=== PATIENT | male | born 1970 | race Caucasian/White ===

== ENCOUNTER → 2018-05-13 | Outpatient (CLI) | payer OTHER ==
--- NOTE | 2018-05-13 16:22 | PCVCIMAG ---
APPROVED REPORT Study performed: 05/13/2018 15:09:48 Exam: Stress Echocardiogram Indication: Hypertension, Chest pain Patient Location: Echo lab Stress Nurse: Gwen Giang RN Status: routine Ht: 6 ft 0 in HR: 65 bpm BP: 140/104 mmHg Rhythm: NSR Medical History Medical History: HTN Exercise History: Physically active Procedure The patient underwent an Exercise Stress Test using the Chucho Protocol. Blood pressure, heart rate, and EKG were monitored. An Echocardiogram was performed by in flight technician in four stages in quad fashion. At peak stress, four selected images were obtained and placed side by side with resting images for comparison. Stress Test Details Stress Test: Exercise stress testing was performed using a Chucho protocol. HR Resting HR: 65 bpmMax Heart Rate (APMHR): 170 bpm Max HR Achieved: 179 bpmTarget HR (85% APMHR): 144 bpm % of APMHR: 105 Recovery HR: 112 bpm HR response to stress: Normal HR response to stress BP Resting BP: 140/104 mmHg Max BP: 198/100 mmHg Recovery BP: 144/90 mmHg BP response to stress: Abnormal hypertensive response to stress. ECG Resting ECG: Sinus Rhythm with inferolateral T wave inversion Stress ECG: Sinus Rhythm ST Change: Normal Maximum ST Deviation: 0 mm Arrhythmia: None Recovery ECG: Sinus Rhythm Recovery ST Change: Normal Recovery ST Deviation: 0 mm Recovery Arrhythmia: None Clinical Reason for Termination: Maximal effort Exercise duration: 11 min 00 sec Highest Stage Achieved: Stage 4: 4.2 mph at 16% grade. Exercise capacity: 13.70 METs Overall Exercise Capacity for Age: Good Angina Score: None Stress ECG Conclusion Clinical: Non-ischemic ECG: Non-ischemic Shelby Treadmill Score is 11.0 which is Low risk. Pre-Stress Echo The resting Echocardiogram showed normal left ventricular contractility with an estimated Ejection Fraction of about 55-60%. Normal wall motion in all segments on baseline images. Post-Stress Echo The stress Echocardiogram showed normal left ventricular contractility with an estimated Ejection Fraction of about 60-65%. Normal augmentation of wall motion in all segments on post stress images. Clinical No clinical or ECG evidence for ischemia. Conclusion Clinical Response: Non-ischemic Exercise Capacity: Average Stress ECG Response: Non-ischemic Stress Echo Images: Non-ischemic The left ventricle is normal in size and wall thickness in both the rest and stress images. Normal stress echocardiogram with maximal exercise stress. Start Lisinoopril 20mg daily, prescription given Other Information Study Quality: Good <Conclusion> The left ventricle is normal in size and wall thickness in both the rest and stress images. Normal stress echocardiogram with maximal exercise stress. Start Lisinoopril 20mg daily, prescription given
== END | disposition home or self-care (01) ==
LOC: PCVCIMAG 14:56
PROVIDERS: ATTEND Internal Medicine
DX: I10 Essential (primary) hypertension (principal); R07.89 Other chest pain
CPT/HCPCS: 93325; 93351